=== PATIENT | female | born 1990 | race Asian ===

== ENCOUNTER 2016-07-12 07:50 | Emergency (ER) | payer OTHER ==
[2016-07-12] MEDS ORDERED: guaiFENesin/CODEINE 5 ML UDC PO STA (09:03)
[2016-07-12] MEDS ORDERED: DEXAMETHASONE 10 MG/ML VIAL PO STA (09:03)
[2016-07-12] MEDS ORDERED: guaiFENesin/CODEINE 5 ML UDC ONE (09:06)
[2016-07-12] MEDS ORDERED: DEXAMETHASONE 10 MG/ML VIAL ONE (09:07)
[2016-07-12] MEDS ORDERED: CHERRY SYRUP 10 ML UDC PO ONE (09:07)
== END 2016-07-12 09:18 | disposition home or self-care (01) ==
DX: R50.9 Fever, unspecified (principal); R09.81 Nasal congestion; R05 Cough; R11.0 Nausea; R19.7 Diarrhea, unspecified; R51 Headache
CPT/HCPCS: 99283; A9270

== ENCOUNTER 2017-07-11 08:00 | Outpatient (CLI) | payer MEDICAID, OTHER ==
[2017-07-11 13:00] LABS: BASOPHILS % (AUTO) 0.2 %; EOSINOPHILS # (AUTO) 0.1 10^3/uL (0.0-0.7); EOSINOPHILS % (AUTO) 2.3 %; HGB - HEMOGLOBIN 12.8 g/dL (12.0-16.0); LYMPHOCYTES # (AUTO) 1.5 10^3/uL (1.5-3.5); LYMPHOCYTES % (AUTO) 23.6 %; MEAN CORPUSCULAR HEMOGLOBIN 28.7 pg (27.0-31.0); MEAN CORPUSCULAR HGB CONC 33.8 g/dL (32.0-36.0); MEAN CORPUSCULAR VOLUME 85.1 fL (81.0-99.0); MEAN PLATELET VOLUME 9.6 fL (7.9-10.8); MONOCYTES # (AUTO) 0.4 10^3/uL (0.0-1.0); MONOCYTES % (AUTO) 5.6 %; NEUTROPHILS # (AUTO) 4.4 10^3/uL (1.5-6.6); NEUTROPHILS % (AUTO) 68.3 %; PLT - PLATELET COUNT 175 10^3/uL (130-450); RED BLOOD COUNT 4.45 10^6/uL (4.20-5.40); RED CELL DISTRIBUTION WIDTH 12.8 % (12.0-15.0); WHITE BLOOD COUNT 6.4 x10^3/uL (4.8-10.8)
[2017-07-11 13:09] LABS: ALBUMIN 4.3 g/dL (3.2-5.5); ALBUMIN/GLOBULIN RATIO 1.4 (1.0-2.2); ALKALINE PHOSPHATASE 55 IU/L (42-121); ALT ALANINE AMINOTRANSFERASE 11 IU/L (10-60); AST ASPARTATE AMINOTRANSFERASE 15 IU/L (10-42); BILIRUBIN,TOTAL 0.7 mg/dL (0.2-1.0); BUN - BLOOD UREA NITROGEN 13 mg/dL (6-20); CALCIUM 8.5 mg/dL (8.5-10.3); CARBON DIOXIDE - CO2 27 mmol/L (21-32); CHLORIDE 103 mmol/L (101-111); CHOLESTEROL 130 mg/dL; CREATININE 0.5 mg/dL (0.4-1.0); GFR - MDRD 149 (>89); GLUCOSE 89 mg/dL (70-100); HDL CHOLESTEROL 44 mg/dL; LDL CHOLESTEROL,CALCULATED 77 mg/dL; LDL/HDL RATIO 1.8 (<4.4); SODIUM 134 mmol/L (135-145); TOTAL PROTEIN 7.3 g/dL (6.7-8.2); VLDL CHOLESTEROL 9 mg/dL
== END 2017-07-11 08:01 | disposition home or self-care (01) ==
LOC: LAB.WCP 08:00
PROVIDERS: ATTEND Family Medicine
DX: Z00.00 Encounter for general adult medical examination without abnormal findings (principal); L70.0 Acne vulgaris
CPT/HCPCS: 36415; 80050; 80061; 83721

== ENCOUNTER 2018-02-16 09:28 | Outpatient (CLI) | payer MEDICAID | END 2018-02-16 09:29 | disposition home or self-care (01) | LOC: LAB 09:28 | PROVIDERS: ATTEND Physician Assistant Medical | DX: R76.11 Nonspecific reaction to tuberculin skin test without active tuberculosis (principal) | CPT/HCPCS: 36415; 81599; 86480 ==

== ENCOUNTER 2018-02-22 14:52 | Outpatient (CLI) | payer MEDICAID | END 2018-02-22 14:53 | disposition home or self-care (01) | LOC: LAB.WCP 14:52 | PROVIDERS: ATTEND Physician Assistant Medical | DX: Z33.1 Pregnant state, incidental (principal) | CPT/HCPCS: 36415; 84702 ==

== ENCOUNTER 2018-03-17 17:33 | Outpatient (CLI) | payer MEDICAID ==
--- NOTE | 2018-03-17 21:41 | Ultrasound Report ---
Reason: ENCOUNTER FOR TEST, RESULT POSITIVE Procedure Date: 03/17/2018 Accession Number: [id number] / [id number] Procedure: US - OB First Trimester CPT Code: FULL RESULT: EXAM: FIRST TRIMESTER OBSTETRIC ULTRASOUND (Less than 11 weeks) EXAM DATE: 03/17/2018 06:23 PM. CLINICAL HISTORY: ENCOUNTER FOR TEST, RESULT POSITIVE. LMP: 01/06/2018. COMPARISONS: None. TECHNIQUE: Transabdominal ultrasound examination with static image documentation. CLINICAL DATES: EGA 10 weeks 0 days with EMILE 10/13/2018 based on LMP. ASSESSMENT: Gestational Sac: Single intrauterine. Embryo: CRL (crown-rump length) 26.1 mm = 9 weeks 3 days. Cardiac activity: 163 beats per minute. Amniotic fluid: Not accurately assessed at this gestational age. Early placenta: Not visible at this gestational age. Other: No perigestational fluid collection demonstrated. MATERNAL STRUCTURES: Uterus: Anteverted. Unremarkable. Cervix: Closed. Bilateral ovaries appear unremarkable. Free Fluid: None. Other: None. IMPRESSION: 1. Single viable intrauterine at EGA 9 weeks 3 days with EMILE 10/17/2018 based on crown-rump length, which is concordant with clinical dates. 2. Assigned dating is EMILE 10/13/2018 based on LMP. MT
== END 2018-03-17 17:34 | disposition home or self-care (01) ==
LOC: DI 17:33
PROVIDERS: ATTEND Registered Nurse
DX: Z32.01 Encounter for pregnancy test, result positive (principal); Z3A.09 9 weeks gestation of pregnancy
CPT/HCPCS: 76801

== ENCOUNTER 2018-03-22 10:38 | Outpatient (CLI) | payer MEDICAID ==
[2018-03-22 15:14] LABS: MUDS CUTOFF CONCENTRATIONS CUTOFF CONC BELOW:
[2018-03-22 15:43] LABS: AMPHETAMINE SCREEN,URINE NEGATIVE (NEGATIVE); BENZODIAZEPINES SCREEN, URINE NEGATIVE (NEGATIVE); COCAINE SCREEN URINE NEGATIVE (NEGATIVE); METHADONE SCREEN, URINE NEGATIVE (NEGATIVE); METHAMPHETAMINES SCREEN, URINE NEGATIVE (NEGATIVE); OPIATE SCREEN, URINE NEGATIVE (NEGATIVE); OXYCODONE SCREEN, URINE NEGATIVE (NEGATIVE); PROPOXYPHENE SCREEN, URINE NEGATIVE (NEGATIVE); TRICYCLIC ANTIDEPRESSANT,URINE NEGATIVE (NEGATIVE)
== END 2018-03-22 10:39 | disposition home or self-care (01) ==
LOC: LAB.R 10:38
PROVIDERS: ATTEND Registered Nurse
DX: Z36.9 Encounter for antenatal screening, unspecified (principal)
CPT/HCPCS: 80306

== ENCOUNTER 2018-03-22 11:11 | Outpatient (CLI) | payer MEDICAID ==
[2018-03-22 11:43] LABS: BASOPHILS % (AUTO) 0.2 %; EOSINOPHILS # (AUTO) 0.1 10^3/uL (0.0-0.7); EOSINOPHILS % (AUTO) 1.5 %; LYMPHOCYTES # (AUTO) 1.4 10^3/uL (1.5-3.5); LYMPHOCYTES % (AUTO) 16.1 %; MEAN CORPUSCULAR HEMOGLOBIN 29.7 pg (27.0-31.0); MEAN CORPUSCULAR HGB CONC 34.8 g/dL (32.0-36.0); MEAN CORPUSCULAR VOLUME 85.4 fL (81.0-99.0); MEAN PLATELET VOLUME 8.7 fL (7.9-10.8); MONOCYTES # (AUTO) 0.5 10^3/uL (0.0-1.0); NEUTROPHILS # (AUTO) 6.5 10^3/uL (1.5-6.6); NEUTROPHILS % (AUTO) 76.2 %; PLT - PLATELET COUNT 168 10^3/uL (130-450); RED BLOOD COUNT 4.69 10^6/uL (4.20-5.40); RED CELL DISTRIBUTION WIDTH 13.4 % (12.0-15.0); WHITE BLOOD COUNT 8.5 x10^3/uL (4.8-10.8)
[2018-03-22 11:51] LABS: BILIRUBIN,URINE NEGATIVE (NEGATIVE); GLUCOSE, URINE (UA) NEGATIVE (NEGATIVE); KETONES,URINE (UA) NEGATIVE (NEGATIVE); LEUKOCYTE ESTERASE, URINE NEGATIVE (NEGATIVE); NITRITE,URINE NEGATIVE (NEGATIVE); OCCULT BLOOD,URINE NEGATIVE (NEGATIVE); PH,URINE 6.5 PH (5.0-7.5); PROTEIN,URINE NEGATIVE (NEGATIVE); UROBILINOGEN,URINE 0.2 (NORMAL) E.U./dL (NORMAL)
[2018-03-22 12:02] LABS: BACTERIA,URINE None Seen /HPF (None Seen); CLARITY,URINE CLEAR (CLEAR); RBC,URINE None Seen /HPF (0-5); SQUAMOUS EPITHELIAL CELL,UR RARE Squamous (<= Few)
[2018-03-23 13:38] LABS: HEPATITIS B SURFACE ANTIGEN NON-REACTIVE (NON-REACTIVE); HEPATITIS C ANTIBODY NON-REACTIVE (NON-REACTIVE); HIV AG/AB 4TH GEN NON-REACTIVE (NON-REACTIVE)
== END 2018-03-22 11:12 | disposition home or self-care (01) ==
LOC: LAB 11:11
PROVIDERS: ATTEND Registered Nurse
DX: Z36.9 Encounter for antenatal screening, unspecified (principal)
CPT/HCPCS: 36415; 80306; 81001; 81599; 85025; 86592; 86762; 86803; 86850; 86900; 86901; 87340; 87389

== ENCOUNTER 2018-04-20 09:08 | Outpatient (CLI) | payer MEDICAID | END 2018-04-20 09:09 | disposition critical access hospital (66) | LOC: EMS 09:08 | PROVIDERS: ATTEND Surgery | DX: O99.89 Other specified diseases and conditions complicating pregnancy, childbirth and the puerperium (principal); R55 Syncope and collapse | CPT/HCPCS: A0425; A0429; A0999 ==

== ENCOUNTER 2018-04-20 09:26 | Emergency (ER) | payer MEDICAID ==
[2018-04-20] MEDS ORDERED: SODIUM CHLORIDE 0.9% 1,000 ML IV ONE (10:13)
[2018-04-20] MEDS ORDERED: ACETAMINOPHEN 325 MG TABLET PO STA (10:13)
[2018-04-20 10:28] LABS: BASOPHILS % (AUTO) 0.2 %; EOSINOPHILS % (AUTO) 0.2 %; HGB - HEMOGLOBIN 13.6 g/dL (12.0-16.0); LYMPHOCYTES # (AUTO) 0.4 10^3/uL (1.5-3.5); LYMPHOCYTES % (AUTO) 2.8 %; MEAN CORPUSCULAR HGB CONC 34.8 g/dL (32.0-36.0); MEAN CORPUSCULAR VOLUME 86.1 fL (81.0-99.0); MEAN PLATELET VOLUME 8.9 fL (7.9-10.8); MONOCYTES # (AUTO) 0.5 10^3/uL (0.0-1.0); MONOCYTES % (AUTO) 3.2 %; NEUTROPHILS # (AUTO) 13.4 10^3/uL (1.5-6.6); NEUTROPHILS % (AUTO) 93.6 %; PLT - PLATELET COUNT 151 10^3/uL (130-450); RED BLOOD COUNT 4.55 10^6/uL (4.20-5.40); RED CELL DISTRIBUTION WIDTH 13.2 % (12.0-15.0); WHITE BLOOD COUNT 14.3 x10^3/uL (4.8-10.8)
[2018-04-20 10:42] LABS: ALBUMIN 3.9 g/dL (3.2-5.5); ALBUMIN/GLOBULIN RATIO 1.1 (1.0-2.2); BILIRUBIN,TOTAL 0.7 mg/dL (0.2-1.0); CALCIUM 8.9 mg/dL (8.5-10.3); CREATININE 0.4 mg/dL (0.4-1.0); TOTAL PROTEIN 7.5 g/dL (6.7-8.2)
[2018-04-20] MEDS ORDERED: PENICILLIN VK 250 MG TABLET PO STA (11:32)
--- NOTE | 2018-04-20 11:43 | ED Physician Documentation ---
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 She did not fall, and denies any injuries. She has had myalgias, bifrontal headache, and sore throat, and noticed a slight fever this morning prior to the episode. She denies cough, abdominal pain, or dysuria. She reports having a similar episode with her first . She is . Review of Systems Constitutional: reports: Fever, Myalgias Eyes: denies: Irritation Nose: denies: Congestion Throat: reports: Sore throat Cardiac: denies: Chest pain / pressure Respiratory: denies: Dyspnea, Cough GI: denies: Abdominal Pain, Nausea, Vomiting : reports: Now EGA (14 weeks gestation). denies: Dysuria, Vaginal bleeding Skin: denies: Rash Musculoskeletal: denies: Back pain, Extremity pain Neurologic: reports: Syncope, Headache (frontal). denies: Seizure PD PAST MEDICAL HISTORY - Past Medical History Endocrine/Autoimmune: None - Past Surgical History Past Surgical History: No - Present Medications Home Medications: Ambulatory Orders Medication Instructions Recorded Confirmed Penicillin V Potassium 500 mg PO QID #40 tablet 04/20/18 Vitamin [Trinatal Rx 1] 04/20/18 - Allergies Allergies/Adverse Reactions: Allergies Allergy/AdvReac Type Severity Reaction Status Date / Time No Known Drug Allergies Allergy Verified 04/20/18 09:36 - Social History Does the pt smoke?: No Smoking Status: Never smoker Does the pt drink ETOH?: No Does the pt have substance abuse?: No - Immunizations Immunizations are current?: Yes PD ED PE NORMAL - Vitals Vital signs reviewed: Yes (normal) - General General: Alert and oriented X 3, Well developed/nourished - HEENT HEENT: Atraumatic, EOMI, Ears normal, Other (Oropharynx erythematous, without exudates.) - Neck Neck: Supple, no meningeal sign, No adenopathy - Cardiac Cardiac: RRR, No murmur - Respiratory Respiratory: No respiratory distress, Clear bilaterally - Abdomen Abdomen: Soft, Non tender, Other (Gravid uterus with normal heart tones.) - Back Back: No CVA TTP - Derm Derm: No rash - Extremities Extremities: No edema, No calf tenderness / cord - Neuro Neuro: Alert and oriented X 3, No motor deficit, No sensory deficit, Normal speech Results - Vitals Vitals: Oxygen O2 Source Room air - EKG (time done) 10:19 Rate: Rate (enter#) (97) [place]: Normal Intervals: Normal [place] QRS: Normal Ischemia: Normal ST segments Computer interpretation: Agree with computer - Labs Labs: Laboratory Tests 04/20/18 04/20/18 04/20/18 10:04 10:04 10:05 WBC 14.3 H RBC 4.55 Hgb 13.6 Hct 39.2 MCV 86.1 MCH 30.0 MCHC 34.8 RDW 13.2 Plt Count 151 MPV 8.9 Neut # (Auto) 13.4 H Lymph # (Auto) 0.4 L [place] # (Auto) 0.5 Eos # (Auto) 0.0 Baso # (Auto) 0.0 Absolute Nucleated RBC 0.01 Nucleated RBC % 0.1 Sodium 132 L Potassium 3.8 Chloride 101 Carbon Dioxide 23 Anion Gap 8.0 BUN 7 Creatinine 0.4 Estimated GFR (MDRD) 191 Glucose 101 H Calcium 8.9 Total Bilirubin 0.7 AST 17 ALT 13 Alkaline Phosphatase 61 Total Protein 7.5 Albumin 3.9 Globulin 3.6 Albumin/Globulin Ratio 1.1 Lipase 23 Urine Color Urine Clarity Urine pH Ur Specific [place] Urine Protein Urine Glucose (UA) Urine Ketones Urine Occult Blood Urine Nitrite Urine Bilirubin Urine Urobilinogen Ur Leukocyte Esterase Urine RBC Urine WBC Ur Squamous Epith Cells Urine Bacteria Urine Casts Urine Mucus Ur Microscopic Review Urine Culture Comments Group A Strep Rapid POSITIVE H 04/20/18 11:40 WBC RBC Hgb Hct MCV MCH MCHC RDW Plt Count MPV Neut # (Auto) Lymph # (Auto) [place] # (Auto) Eos # (Auto) Baso # (Auto) Absolute Nucleated RBC Nucleated RBC % Sodium Potassium Chloride Carbon Dioxide Anion Gap BUN Creatinine Estimated GFR (MDRD) Glucose Calcium Total Bilirubin AST ALT Alkaline Phosphatase Total Protein Albumin Globulin Albumin/Globulin Ratio Lipase Urine Color YELLOW Urine Clarity CLEAR Urine pH 7.0 Ur Specific [place] 1.015 Urine Protein NEGATIVE Urine Glucose (UA) NEGATIVE Urine Ketones 15 H Urine Occult Blood NEGATIVE Urine Nitrite NEGATIVE Urine Bilirubin NEGATIVE Urine Urobilinogen 0.2 (NORMAL) Ur Leukocyte Esterase TRACE H Urine RBC 0-5 Urine WBC 6-10 H Ur Squamous Epith Cells MANY Squamous H Urine Bacteria Many H Urine Casts 0-2 Granular Casts Urine Mucus Few Strands Ur Microscopic Review INDICATED Urine Culture Comments NOT INDICATED Group A Strep Rapid PD MEDICAL DECISION MAKING - ED course Complexity details: reviewed results, re-evaluated patient, considered differential, d/w patient, d/w family ED course: The patient's presentation is significant for a brief syncopal episode. Her workup is significant for positive strep screen with an elevated white blood cell count of 14.3. She does not appear septic, and her vital signs remained stable throughout her time in the emergency department. There is no history or clinical evidence to suggest seizure, cardiac dysrhythmia, and I doubt pulmonary embolus. Treatment in the emergency department included administration of normal saline 1 L IV, penicillin 500 mg orally, and acetaminophen 650 mg orally. She is being discharged with a prescription for penicillin. I discussed with her and her family the diagnosis, outpatient treatment and follow-up, as well as potentially worrisome signs or symptoms that should prompt reevaluation in the emergency department. Departure - Departure Disposition: 01 Home, Self Care Clinical Impression: Strep pharyngitis Syncope Qualifiers: Syncope type: unspecified Qualified Code(s): R55 - Syncope and collapse Qualifiers: Weeks of gestation: 14 weeks Qualified Code(s): Z3A.14 - 14 weeks gestation of Condition: Stable Instructions: ED Strep Pharyngitis Conf, ED Fainting Unkn Cause Follow-Up: Carroll Roman MD [Provider Admit Priv/Credential] - Prescriptions: Penicillin V Potassium 500 mg PO QID #40 tablet Comments: Drink plenty of fluids. Gargle with cool liquids. Take penicillin 4 times daily as prescribed. You can use Tylenol every 4-6 hours if needed for fever or discomfort. Follow-up with your primary physician within 1 week. Call to schedule appointment. Return to the emergency department if increasing difficulty swallowing, recurrent lightheadedness, or otherwise worsening symptoms. Forms: Activity restrictions Discharge Date/Time: 04/20/18 12:16
[2018-04-20 11:54] LABS: BILIRUBIN,URINE NEGATIVE (NEGATIVE); GLUCOSE, URINE (UA) NEGATIVE (NEGATIVE); KETONES,URINE (UA) 15 mg/dL (NEGATIVE); LEUKOCYTE ESTERASE, URINE TRACE (NEGATIVE); NITRITE,URINE NEGATIVE (NEGATIVE); OCCULT BLOOD,URINE NEGATIVE (NEGATIVE); PROTEIN,URINE NEGATIVE (NEGATIVE); UROBILINOGEN,URINE 0.2 (NORMAL) E.U./dL (NORMAL)
[2018-04-20 11:56] LABS: CLARITY,URINE CLEAR (CLEAR)
[2018-04-20 12:06] LABS: BACTERIA,URINE Many /HPF (None Seen); MUCUS,URINE Few Strands; RBC,URINE 0-5 /HPF (0-5); SQUAMOUS EPITHELIAL CELL,UR MANY Squamous (<= Few)
[2018-04-20 12:07] VITALS: BP 114/68
[2018-04-20 12:07] LABS: CASTS, URINE 0-2 Granular Casts /LPF
== END 2018-04-20 12:16 | disposition home or self-care (01) ==
LOC: EDUNIT# → ED 09:26
DX: O99.89 Other specified diseases and conditions complicating pregnancy, childbirth and the puerperium (principal); J02.0 Streptococcal pharyngitis; R55 Syncope and collapse; D72.829 Elevated white blood cell count, unspecified; Z3A.14 14 weeks gestation of pregnancy
CPT/HCPCS: 36415; 80053; 81001; 83690; 85025; 87430; 93005; 96360; 99283; 99284; A9270; 81003; 87086

== ENCOUNTER 2018-06-14 12:34 | Outpatient (CLI) | payer MEDICAID ==
--- NOTE | 2018-06-15 10:35 | Ultrasound Report ---
Reason: ENCOUNTER FOR SUPRVSN OF NORMAL , SECOND Procedure Date: 06/14/2018 Accession Number: [id number] / [id number] Procedure: US - OB Detailed Eval CPT Code: FULL RESULT: EXAM: COMPLETE OBSTETRICAL ULTRASOUND EXAM DATE: 06/14/2018 02:27 PM. CLINICAL HISTORY: anatomic survey. COMPARISON: None. TECHNIQUE: Real-time sonographic evaluation of the fetus performed by the site coordinator. Multiple publications sales representative static images were saved for review. DATING: Established EGA 22 weeks 5 days with EMILE 10/13/2018 based on obstetric provider information. EGA 22 weeks 2 days with EMILE 10/17/2018 based on first ultrasound. EGA 22 weeks 3 days with EMILE 10/15/2018 based on the current ultrasound. GENERAL EVALUATION Lang . Cardiac activity: 154 bpm. movement: Visualized. Presentation: Cephalic. Placenta: Anterior position. No evidence for previa. Umbilical cord: 3 vessel cord. Central placental cord origin. Amniotic fluid: ZACARIAS 16.1 MVP 5.7 cm. BIOMETRY Bi-Parietal Diameter (BPD): 5.3 cm, 22 weeks 2 days Head Circumference (HC): 20.1 cm, 22 weeks 2 days Abdominal Circumference (AC): 18.2 cm, 23 weeks 0 days Femur Length (FL): 3.8 cm, 22 weeks 2 days Estimated Weight: 521 g, 39th percentile for 22 weeks 5 days. ANATOMY The intracranial structures, profile, face/nose/lips, spine, 4 chamber heart and outflow tracts, stomach, abdominal wall and cord insertion, diaphragm, kidneys, bladder, and extremities were visualized and demonstrate no abnormality. MATERNAL STRUCTURES Uterus: Unremarkable. Cervix: Long and closed. Transabdominal length 3.9 cm. Right ovary/adnexa: Unremarkable. Left ovary/adnexa: Unremarkable. Free fluid: None. IMPRESSION: 1. Lang live intrauterine with gestational age 22 weeks 5 days based on obstetric provider input. 2. Estimated weight is within expected limits for assigned dating. 3. Normal anatomic survey. No anatomic abnormalities are detected at this time. RADIA
== END 2018-06-14 12:35 | disposition home or self-care (01) ==
LOC: DI 12:34
PROVIDERS: ATTEND Registered Nurse
DX: Z34.82 Encounter for supervision of other normal pregnancy, second trimester (principal)
CPT/HCPCS: 76811

== ENCOUNTER 2018-09-18 10:59 | Outpatient (CLI) | payer MEDICAID | END 2018-09-18 23:59 | disposition home or self-care (01) | LOC: LAB.R 10:59 | PROVIDERS: ATTEND Nurse Practitioner Obstetrics & Gynecology | DX: Z36.85 Encounter for antenatal screening for Streptococcus B (principal) | CPT/HCPCS: 87491; 87591; 87797 ==

== ENCOUNTER 2018-09-18 11:22 | Outpatient (CLI) | payer MEDICAID ==
[2018-09-19 13:12] LABS: HIV AG/AB 4TH GEN NON-REACTIVE (NON-REACTIVE)
[2018-09-19 13:27] LABS: HEPATITIS C ANTIBODY NON-REACTIVE (NON-REACTIVE)
[2018-09-20 13:41] LABS: HSV 1 IGG TYPE SPECIFIC AB <0.90 index; HSV 2 IGG TYPE SPECIFIC AB <0.90 index
== END 2018-09-18 11:23 | disposition home or self-care (01) ==
LOC: LAB 11:22
PROVIDERS: ATTEND Nurse Practitioner Obstetrics & Gynecology
DX: Z36.89 Encounter for other specified antenatal screening (principal)
CPT/HCPCS: 36415; 81599; 86592; 86695; 86696; 86803; 87389

== ENCOUNTER 2018-10-14 00:22 | Inpatient (IN) | payer MEDICAID ==
[2018-10-14] MEDS ORDERED: SODIUM CHLORIDE FLUSH 0.9% 10 ML SYRINGE IVP PRN (00:39)
[2018-10-14] MEDS ORDERED: OXYTOCIN/SODIUM CHLORIDE 500 ML IV ONE (00:45)
[2018-10-14] MEDS ORDERED: SODIUM CHLORIDE FLUSH 0.9% 10 ML SYRINGE ONE (00:45)
[2018-10-14] MEDS ORDERED: LACTATED RINGERS 1,000 ML IV ONE (00:45)
--- NOTE | 2018-10-14 01:00 | HISTORY & PHYSICAL EXAMINATION ---
Admit History - Visit Reason Visit Reason: Contractions - : 3 Parity: 2 Premature: 0 Ectopic: 0 : 0 Care: positive: [facility] Risk/History: positive: None Complications This : positive: None Smoking Status: Never smoker - Mother's Labs Mother's Blood Type: positive: O Mother's RH: positive: Positive GBS: positive: Group B Step Negative Rubella Status: positive: Immune Meds/Allgy - Home Medications Home Medications: Ambulatory Orders Medication Instructions Recorded Confirmed Penicillin V Potassium 500 mg PO QID #40 tablet 04/20/18 Vitamin [Trinatal Rx 1] 04/20/18 - Allergies Allergies/Adverse Reactions: Allergies Allergy/AdvReac Type Severity Reaction Status Date / Time No Known Drug Allergies Allergy Verified 04/20/18 09:36 Review of Systems - Constitutional Constitutional: denies: Fatigue, Fever, Chills - Eyes Eyes: denies: Pain, Blurred vision, Vision loss, Dipolpia - Cardiovascular Cariovascular: denies: Irregular heart rate, Chest pain, Edema - Respiratory Respiratory: denies: Cough, Wheezing, SOB at rest - Gastrointestinal Gastrointestinal: denies: Abdominal pain, Constipation, Diarrhea, Change in bowel habits, Nausea, Vomiting - Integumentary Integumentary: denies: Rash, Pruritis - Neurological Neurological: denies: Headache - Psychiatric Psychiatric: denies: Depression, Anxiety Physical - Abdominal Exam Vital Signs: Temp Pulse Resp BP Pulse Ox 36.5 C 75 16 117/79 100 10/14/18 00:28 10/14/18 00:28 10/14/18 00:28 10/14/18 00:54 10/14/18 00:28 Contraction Frequency (min/apart): 3-4 Contraction Intensity: positive: Strong Uterine Resting Tone: positive: Soft - Monitoring Heart Rate Baseline: 140 Strip Review: positive: Category I - Presentation Presentation: positive: Vertex - Vaginal Exam Membranes: positive: Membranes intact Dilation (in cm): 8 Effacement (%): 90 Station: positive: 0 Cervical Position: positive: Midposition - Speculum Exam Speculum Exam Performed: positive: No Plan for Labor - Plan For Labor I expect patient to be DC'd or transferred within 96 hours.: Yes Plan for Labor: HPI: 28yo @ 40.1wks gestation by LMP c/w 9w U/S who presented on 10/13/2018 at 1215 with c/o contractions since 1500 on 10/13/2018. She reports +FM and denies vaginal bleeding or leakage of fluid. She has been a patient of [facility] through the duration of her and her has remained uncomplicated. She was admitted to [facility] for expectant management. Dating criteria: LMP 01/06/2019 Initial ultrasound at 9wks - agrees Serial Exams - agree OB History: G1: 12/24/2012, female at 39wks. 15hr VAVD. Epidural. [place]. G2: 07/09/2014, female at 39wks. 10 hr labor. . Unmedicated. [place]. G3: Current PMHx: None Surgical Hx: None Social hx: Never smoker, no etoh or IVDA. 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 Medications: PNV Allergies: NKDA Vaccinations: influenza 04/2019 Tdap 08/08/2018 Assessment: 28yo @ 40.1wks gestation by LMP = 9wk U/S GBS neg Active labor Plan: Admit for expectant management Continuous monitoring Anticipate spontaneous vaginal delivery.
[2018-10-14] MEDS ORDERED: LIDOCAINE-MPF 1% 30 ML VIAL ONE (01:10)
[2018-10-14 01:25] LABS: BASOPHILS % (AUTO) 0.3 %; EOSINOPHILS # (AUTO) 0.1 10^3/uL (0.0-0.7); EOSINOPHILS % (AUTO) 0.7 %; HGB - HEMOGLOBIN 12.9 g/dL (12.0-16.0); LYMPHOCYTES # (AUTO) 1.2 10^3/uL (1.5-3.5); LYMPHOCYTES % (AUTO) 9.1 %; MEAN CORPUSCULAR HEMOGLOBIN 27.4 pg (27.0-31.0); MEAN PLATELET VOLUME 8.3 fL (7.9-10.8); MONOCYTES # (AUTO) 0.6 10^3/uL (0.0-1.0); MONOCYTES % (AUTO) 4.2 %; NEUTROPHILS # (AUTO) 11.6 10^3/uL (1.5-6.6); NEUTROPHILS % (AUTO) 85.7 %; PLT - PLATELET COUNT 179 10^3/uL (130-450); RED BLOOD COUNT 4.72 10^6/uL (4.20-5.40); RED CELL DISTRIBUTION WIDTH 12.8 % (12.0-15.0); WHITE BLOOD COUNT 13.5 x10^3/uL (4.8-10.8)
[2018-10-14] MEDS ORDERED: HYDROCORTISONE 1% CREAM 28 GM TUBE PR PRN (01:55)
[2018-10-14] MEDS ORDERED: WITCH HAZEL/GLYCERIN 1 EACH MED..PAD TOP PRN (01:55)
[2018-10-14] MEDS ORDERED: OXYTOCIN/SODIUM CHLORIDE 500 ML IV PRN (02:01)
--- NOTE | 2018-10-14 02:01 | DELIVERY NOTE ---
Delivery Note - Labor Labor: positive: Augmented by ARM - Infant Delivery Method Delivery Method: positive: Spontaneous vaginal delivery - Presentation Presentation: positive: Vertex, RILEY - left occiput anterior - Nuchal Cord Nuchal Cord: positive: None - Amniotic Fluid Description Amniotic Fluid Description: positive: Clear - Episiotomy Type Episiotomy Type: positive: None - Laceration Laceration: positive: None - Delivery Outcome Delivery Outcome: positive: Livebirth - : positive: Placed in direct skin contact with mother, Stimulated, Warmed, [place] used [place] sex: positive: Female - Cord Cord: positive: 3 vessels - Placenta Placenta: positive: Intact, Spontaneous - Estimated Blood Loss Estimated Blood Loss (in cc): 150 - Post Delivery Events Post Delivery Events: positive: No post delivery events - Delivery Comments (Free Text/Narrative) Delivery Comments (Free Text/Narrative): This 28yo @ 40.1wks gestation by LMP = 9wk U/S presented at 10/14/2018 at approximately 0015 in active labor. Cervix was 8/90/0, vertex with intact membranes. FHR pattern demonstrated baseline 140s in a Category I tracing throughout. Normal labor course. AROM occurred at 0111 and was noted to be a moderate amount of clear fluid. She progressed to c/c/+2 with spontaneous urge to push at 0130. Normal of viable female at 0136 on 10/14/2018. No nuchal cord. 's 9/9 at 1 and 5 min respectively. The was placed on maternal abdomen, stimulated, dried, and placed skin to skin. Pitocin administered via IV for hemostasis. The umbilical cord was allowed to stop pulsating at which time it was doubly clamped by CNM and cut by FOB. Cord blood was obtained. Placenta delivered spontaneously and intact at 0142. EBL 150mL. Uterine fundus firm and there is no excessive bleeding. The perineum, vagina, and cervix were inspected and found to be intact. initiated. Family bonding well. Both mother and baby were left in stable condition.
[2018-10-14] MEDS: IBUPROFEN 800 MG TABLET PO SCH ×2 (09:21→11:54)
[2018-10-14] MEDS: ACETAMINOPHEN 500 MG TABLET PO SCH ×2 (09:21→11:55)
[2018-10-14] MEDS: DOCUSATE SODIUM 100 MG CAPSULE PO SCH ×2 (09:21→22:23)
[2018-10-14] MEDS: LACTATED RINGERS 1,000 ML IV SCH ×2 (11:53→11:54)
[2018-10-14] MEDS: SODIUM CHLORIDE FLUSH 0.9% 10 ML SYRINGE IVP SCH ×2 (11:54→11:55)
[2018-10-15 07:53] VITALS: BP 102/73
[2018-10-15] MEDS: DOCUSATE SODIUM 100 MG CAPSULE PO SCH (08:15)
--- NOTE | 2018-10-15 08:33 | Discharge Plan ---
Discharge Plan Disposition: 01 Home, Self Care Condition: Good Diet: Regular Activity Restrictions: No Restrictions Shower Restrictions: No Driving Restrictions: No Weight Bearing: Full Weight No Smoking: If you smoke, Please STOP! Call for help. Follow-up with: Katelyn Lucero CNM, ARNP [Provider Admit Priv/Credential] -
--- NOTE | 2018-10-15 08:36 | PROVIDER PROGRESS NOTE ---
Subjective - Subjective Subjective: FINAL PROGRESS NOTE: S: Bonding well with baby. without difficulty. Pain well controlled with oral medications. She is feeling well. Bleeding has decreased. No BM but is passing flatus. She is anxious to get to go home today. O: BP 102/73, Hr 68, RR 18, T 36.8 Heart RRR w/o M/G/R, lungs CTAB, abdomen soft and nontender with fundus firm at U-1. Bilateral Le's no edema. A: 28yo -->P3 PPD#1 s/p TSVD of viable female . Normal recovery P: Reviewed pp self care and warning s/sx Planning POPs vs IUD for contraception - reviewed Advised continuation of PNV while . Advised OTC Ibuprofen and Tylenol for pain management PRN. F/u in 1 week for support visit and in 3 weeks for routine pp visit or sooner PRN. Pt and verbalized understanding and agree to above plan. They deny further questions or concerns at this time. Objective - Vital Signs/Intake & Output Vital Signs: Vital Signs x48h Temp Pulse Resp BP Pulse Ox 10/15/18 07:50 36.8 C 68 18 102/73 10/15/18 04:01 36.8 C 78 17 123/84 H 100 Intake & Output: Intake & Output 10/12/18 10/13/18 10/14/18 10/15/18 23:59 23:59 23:59 23:59 Output Total 400 Balance -400 - Lab Results Fish Bones: 10/14/18 00:52
--- NOTE | 2018-10-15 12:30 | DISCHARGE SUMMARY ---
Physician: MAGDA Gill DATE OF ADMISSION: 10/14/2018 DATE OF DISCHARGE: 10/15/2018 DIAGNOSES ON ADMISSION 1. A 28-year-old G3, P2-0-0-2, at 40.1 weeks' gestation. 2. Active labor. 3. Streptococcus negative. DIAGNOSES ON DISCHARGE 1. A 28-year-old G3, P3-0-0-3, status post spontaneous vaginal delivery. 2. Normal recovery. 3. . BRIEF HISTORY: This is a patient of [facility], who presented on 10/14/2018 with complaints of contractions. She was found to be 8 cm dilated, 90% effaced, 0 station, vertex position, with intact membranes. She progressed to complete, complete, following artificial rupture of membranes, which occurred at 0111. It was noted to be a moderate amount of clear fluid. She spontaneously delivered a viable female infant at 0136 on 10/14/2018. Apgars were 9 and 9 at one and five minutes respectively. EBL 150 mL. Perineum intact. She has been doing well in her course. She is ambulating and tolerating a regular diet. She is urinating without difficulty, and her lochia is normal. Her pain is well controlled with oral medications. She will be discharged home today on day #1 with instructions to continue her vitamin while and to take ibuprofen and Tylenol [id number] for pain management as needed. She intends to follow up with me at [facility] in 1 week for support visit and in 3 weeks for routine visit. She has been given precautions to call if she has any worsening fevers, chills, abdominal pain, increased bleeding, or foul-smelling vaginal lochia. TD: 10/15/2018 08:41 FERNANDA
--- NOTE | 2018-10-15 14:19 | Labor Flowsheet ---
Labor Flowsheet Datetime Report Generated by CPN: 10/15/2018 14:18 Datetime: 10/15/2018 07:35 VITAL SIGNS NBP Sys/Peggy/Mean (mmHg): 102 : 73 : 80 Pulse: 68 Datetime: 10/14/2018 11:20 SpO2 (%): 100 Datetime: 10/14/2018 01:39 Membranes Ruptured Date/Time: 10/14/2018 01:11 Amniotic Fluid Odor: Normal Datetime: 10/14/2018 01:36 UTERINE ACTIVITY Monitor Mode: External Frequency (min): x2 Quality: Strong Duration (sec): 60-80 Pattern: Normal: <= 5 Contractions in 10 Minutes Resting Tone (Palpate): Relaxed ASSESSMENT A Monitor Mode: Telemetry FHR Baseline Rate : 150 Variability: Moderate 6-25 bpm Accelerations: None Decelerations: Variable Category: Category II Datetime: 10/14/2018 01:35 Pushing Progress: with Pushing Datetime: 10/14/2018 01:34 STAGE 2 Pushing: Coached on Pushing; Urge to Push Pushing Position: Pushing with Contractions Datetime: 10/14/2018 01:29 VAGINAL EXAM Dilatation (cm): 10.0 Effacement (%): 100 Station: 1 Exam by: A. Nic, CNM Datetime: 10/14/2018 01:27 COMMUNICATION Communication: Provider at Bedside Datetime: 10/14/2018 01:19 PATIENT CARE IV/Blood Work: IV Started Datetime: 10/14/2018 01:12 Membranes Rupture Method: Artificial Amniotic Fluid Color: Clear Amniotic Fluid Amount: Small Datetime: 10/14/2018 01:02 Oxygen Method: Room Air Datetime: 10/14/2018 01:01 Monitor Interventions for UA: [place] Adjusted
== END 2018-10-15 12:00 | disposition home or self-care (01) | DRG 807 ==
LOC: WFO 00:22 → FBP 00:24 → WFO 00:39 → FBP 00:40
PROVIDERS: ADMIT Nurse Practitioner Obstetrics & Gynecology; ATTEND Nurse Practitioner Obstetrics & Gynecology
PROC: 10E0XZZ Delivery of Products of Conception, External Approach (ICD-10-PCS; principal; 2018-10-14)
PROC: 10907ZC Drainage of Amniotic Fluid, Therapeutic from Products of Conception, Via Natural or Artificial Opening (ICD-10-PCS; 2018-10-14)
DX: O80 Encounter for full-term uncomplicated delivery (principal); Z37.0 Single live birth; Z3A.40 40 weeks gestation of pregnancy
CPT/HCPCS: 85025; 99213; A9270; J7120

== ENCOUNTER → 2018-10-17 10:30 | Outpatient (CLI) | payer MEDICAID ==
--- NOTE | 2018-10-17 11:00 | Labor Flowsheet ---
Labor Flowsheet Datetime Report Generated by CPN: 10/17/2018 11:00 Datetime: 10/15/2018 07:35 VITAL SIGNS NBP Sys/Peggy/Mean (mmHg): 102 : 73 : 80 Pulse: 68 Datetime: 10/14/2018 11:20 SpO2 (%): 100 Datetime: 10/14/2018 01:39 Membranes Ruptured Date/Time: 10/14/2018 01:11 Amniotic Fluid Odor: Normal Datetime: 10/14/2018 01:36 UTERINE ACTIVITY Monitor Mode: External Frequency (min): x2 Quality: Strong Duration (sec): 60-80 Pattern: Normal: <= 5 Contractions in 10 Minutes Resting Tone (Palpate): Relaxed ASSESSMENT A Monitor Mode: Telemetry FHR Baseline Rate : 150 Variability: Moderate 6-25 bpm Accelerations: None Decelerations: Variable Category: Category II Datetime: 10/14/2018 01:35 Pushing Progress: with Pushing Datetime: 10/14/2018 01:34 STAGE 2 Pushing: Coached on Pushing; Urge to Push Pushing Position: Pushing with Contractions Datetime: 10/14/2018 01:29 VAGINAL EXAM Dilatation (cm): 10.0 Effacement (%): 100 Station: 1 Exam by: A. Nic, CNM Datetime: 10/14/2018 01:27 COMMUNICATION Communication: Provider at Bedside Datetime: 10/14/2018 01:19 PATIENT CARE IV/Blood Work: IV Started Datetime: 10/14/2018 01:12 Membranes Rupture Method: Artificial Amniotic Fluid Color: Clear Amniotic Fluid Amount: Small Datetime: 10/14/2018 01:02 Oxygen Method: Room Air Datetime: 10/14/2018 01:01 Monitor Interventions for UA: [place] Adjusted
== END | disposition home or self-care (01) ==
LOC: WFO 10:30 → FBP 10:32
PROVIDERS: ATTEND Nurse Practitioner Obstetrics & Gynecology
DX: Z53.9 Procedure and treatment not carried out, unspecified reason (principal)